=== PATIENT | female | born 1950 | race Caucasian/White ===

== ENCOUNTER 2017-07-25 17:34 | Inpatient (IN) | payer OTHER ==
[~2017-07-25] VITALS: Ht 165.1 cm; Wt 61.5 kg
--- NOTE | 2017-07-25 19:24 | ED GENERAL ADULT ---
History of Present Illness General Chief Complaint: General Adult Stated Complaint: ABNORMAL LABS Source: patient Exam Limitations: no limitations Vital Signs & Intake/Output Vital Signs & Intake/Output Vital Signs Date Time Temp Pulse Resp B/P B/P Pulse O2 O2 Flow FiO2 Mean Ox Delivery Rate 07/25 2231 99.2 94 16 142/67 96 Room Air 07/25 2229 Room Air 07/25 1755 99.1 90 18 168/98 97 Room Air Allergies Coded Allergies: codeine (Intermediate, N/V 07/25/17) Triage Note: 66F [address] DUE TO ABNORMAL LABS WITH CREATININE 5.6 AND POTASSIUM AND MAG HIGH. DENIES CP/PALP/SOB. REPORTS FEELING DRY BUT DENIES LEG SWELLING OR CONFUSION. REPORTS SHE HAS BEEN MAKING URINE TODAY. DENIES HEMATURIA OR DYSURIA. REPORTS NORMAL APPETITE, DENIES N/V Triage Nurses Notes Reviewed? yes Onset: Abrupt Duration: day(s): (1) Timing: single episode today Injury Environment: home Severity: mild, moderate No Modifying Factors: none LMP (ages 10-50): post menopausal, unknown : No HPI: 66-year-old female with past medical history of alcohol dependence presents for evaluation of abnormal labs. Patient was sent from [email or web address] where she had normal intake blood work done. Blood work revealed a elevated BUN/creatinine magnesium and potassium. Patient states that she feels slightly dehydrated but otherwise feels fine. She has no chest pain shortness of breath lower extremity edema fatigue nausea vomiting diarrhea fever or rashes. She's never had any history of kidney disease. She is not taking any medicine. She states that she had blood work done 2 weeks prior that was completely normal. (Jigar Abraham) Past History Travel History Traveled to [place] past 21 day No Medical History Any Pertinent Medical History? see below for history Neurological: NONE EENT: NONE Cardiovascular: NONE Respiratory: NONE Gastrointestinal: NONE Hepatic: NONE Renal: NONE Musculoskeletal: NONE Psychiatric: NONE Endocrine: NONE Cancer(s): NONE Surgical History Surgical History: non-contributory Psychosocial History What is your primary language Gibraltarian Tobacco Use: Current Daily Use Daily Tobacco Use Amount/Type: => 5 Cigarettes daily ETOH Use: alcoholic Illicit Drug Use: denies illicit drug use Family History Hx Contributory? No (Jigar Abraham) Review of Systems Review of Systems Constitutional: Reports: no symptoms. EENTM: Reports: no symptoms. Respiratory: Reports: no symptoms. Cardiovascular: Reports: no symptoms. GI: Reports: no symptoms. Genitourinary: Reports: no symptoms. Musculoskeletal: Reports: no symptoms. Skin: Reports: no symptoms. Neurological/Psychological: Reports: no symptoms. Hematologic/Endocrine: Reports: no symptoms. Immunologic/Allergic: Reports: no symptoms. All Other Systems: Reviewed and Negative (Jigar Abraham) Physical Exam Physical Exam General Appearance: well developed/nourished, no apparent distress, alert, awake Head: atraumatic, normal appearance Eyes: Bilateral: normal appearance, PERRL, EOMI. Ears, Nose, Throat: normal pharynx, normal ENT inspection, hearing grossly normal Neck: normal inspection, supple, full range of motion Respiratory: normal breath sounds, chest non-tender, no respiratory distress, lungs clear Cardiovascular: regular rate/rhythm, normal peripheral pulses Peripheral Pulses: 2+ radial (R), 2+ radial (L) Gastrointestinal: soft, non-tender Back: normal inspection, normal range of motion, no CVA tenderness Extremities: normal inspection, normal range of motion, no edema Neurologic/Psych: no motor/sensory deficits, awake, alert, oriented x 3, normal gait Skin: intact, normal color, cyanosis Lymphatic: no anterior cervical claudia Core Measures ACS in differential dx? No CVA/TIA Diagnosis: No Sepsis Present: No Sepsis Focused Exam Completed? No (Jigar Abraham) Progress Differential Diagnoses I considered the following diagnoses in my evaluation of the patient: [Acute kidney injury, dehydration, electrolyte abnormality, kidney stone, diabetic nephropathy, hypertensive nephropathy, nephrotic syndrome, interstitial nephritis, glomerulonephritis] Plan of Care: Orders Procedure Date/time Status Nothing by Mouth 07/26 B Active Saline Lock 07/25 2138 Active Misc Message 07/25 2138 Active ED Holding Orders 07/25 2138 Active Admit to inpatient 07/25 2138 Active Vital Signs 07/25 2138 Active Code Status 07/25 2138 Active Add-on Test (ER Only) 07/25 2048 Active Add-on Test (ER Only) 07/26 2043 Active Add-on Test (ER Only) 07/25 2021 Active TROPONIN LEVEL 07/25 194 Complete B-TYPE NATRIURETIC PEP (BNP) 07/25 194 Complete URINE DRUGS OF ABUSE 07/25 1821 Complete PHOSPHORUS 07/25 1757 Complete MAGNESIUM 07/25 1756 Complete CBC WITHOUT DIFFERENTIAL 07/25 1756 Complete BASIC METABOLIC PANEL 07/25 1756 Complete Intake & Output 07/26 1755 Active URINALYSIS 07/26 1755 Complete EKG 07/25 1753 Active Patient Data 07/25 1644 Active Current Medications Sig/Isabell Start time Last Medication Dose Stop Time Status Admin Nicotine 21 MG DAILY 07/25 2052 AC 07/25 (Nicoderm) 2251 Laboratory Tests 07/25/171943: Anion Gap 14, Estimated GFR 8 L, BUN/Creatinine Ratio 10.2, Glucose 187 H, Calcium 8.3 L, Phosphorus 5.8 H, Magnesium 2.6 H, Troponin I < 0.01, Pro-B- Natriuretic Pept 585 H, CBC w Diff NO MAN DIFF REQ, RBC 3.87 L, MCV 93.5, MCH 30.5, MCHC 32.6 L, RDW 15.3 H, MPV 6.8 L, Gran % 74.0, Lymphocytes % 13.5 L, Monocytes % 9.7 H, Eosinophils % 2.2, Basophils % 0.6, Absolute Granulocytes 7.8 H, Absolute Lymphocytes 1.4, Absolute Monocytes 1.0 H, Absolute Eosinophils 0.2, Absolute Basophils 0.1 07/25/171820: Urine Opiates Screen < 100, Methadone Screen < 40, Barbiturate Screen < 60, Ur Phencyclidine Scrn < 6.00, Amphetamines Screen < 100, U Benzodiazepines Scrn 87, Urine Cocaine Screen < 50, Urine Cannabis Screen < 5.00, Urine Color YEL, Urine Clarity CLEAR, Urine pH 6.5, Ur Specific [place] 1.010, Urine Protein TRACE H, Urine Ketones NEG, Urine Nitrite NEG, Urine Bilirubin NEG, Urine Urobilinogen 0.2, Ur Leukocyte Esterase SMALL H, Ur Microscopic SEDIMENT EXAMINED, Urine RBC 5-10 H, Urine WBC 10-15 H, Ur Epithelial Cells MANY H, Urine Bacteria MANY H , Urine Hemoglobin SMALL H, Urine Glucose NEG She seen and evaluated. She is here with abnormal labs. She denies having any previous history of kidney disease. She was [facility]. She states she had blood work done 2 weeks prior that was completely normal. She denies taking any medication. She states she feels well and has no complaints. Blood work was repeated here which confirms acute kidney injury. Her creatinine is greater than 5. Her potassium is normalized. She is able to urinate. Urinalysis here shows some red and white blood cells. And a small amount of protein. A CT scan of the abdomen and pelvis was obtained does not show any acute findings renal ultrasound ordered. Patient refused chest x-ray. She will require admission to the hospital for further evaluation and treatment of acute kidney injury and determine etiology. IV fluids ordered. Case discussed with Dr. Mai he agrees. Diagnostic Imaging: Viewed by Me: CT Scan, Ultrasound. Discussed w/RAD: CT Scan, Ultrasound. Radiology Impression: PATIENT: JOAN LOPEZ PRESENT AGE: 66 PATIENT ACCOUNT NO: [id number] : 49 LOCATION: [facility] ORDERING PHYSICIAN: Jigar ALCANTARA SERVICE DATE: 07/25/17-2022 EXAM TYPE: CAT - CT ABD & PELVIS W/O IV CONTRAS EXAMINATION: CT ABDOMEN AND PELVIS WITHOUT CONTRAST CLINICAL INFORMATION: Acute kidney injury. COMPARISON: None TECHNIQUE: Multidetector volumetric imaging was performed from the superior aspect of the liver through the pubic symphysis. Sagittal and coronal reformatted images were obtained on the technologist's workstation. DLP: 262.58 mGy-cm FINDINGS: LUNG BASES: The visualized lung bases are unremarkable. LIVER, GALLBLADDER, AND BILIARY TREE: The liver is normal in size, shape, and attenuation. No focal hepatic lesion or biliary ductal dilatation is present. There is a small coarse calcification at the posterior right lobe of liver. The gallbladder is unremarkable with no evidence of radiopaque gallstones, gallbladder wall thickening, or obvious pericholecystic inflammatory changes. PANCREAS: Unremarkable. SPLEEN: Unremarkable. ADRENAL GLANDS: Unremarkable. KIDNEYS AND URETERS: The kidneys are normal in size, shape, and attenuation. No hydronephrosis, hydroureter, or calculi seen. No perinephric stranding. 1.5 cm cortical cyst upper pole of the right kidney. BLADDER: Unremarkable. GASTROINTESTINAL TRACT: Surgical suture line at the sigmoid colon. There are surgical clips in the upper central abdomen around the gastroesophageal junction. No acute change. No bowel wall thickening or edema. No bowel obstruction. There are diverticula of left colon without diverticulitis. Moderate to large-volume of stool in the colon. The small bowel loops are normal. The appendix is not seen. There is no inflammation the mesentery. ABDOMINAL WALL: No significant hernia is appreciated. LYMPH NODES: Normal. VASCULAR: Atherosclerotic vascular wall calcifications of aorta and iliac arteries without aneurysm. PELVIC VISCERA: 1.5 cm coarse calcification the right side of the uterus consistent with calcified fibroid. No adnexal abnormality. OSSEOUS STRUCTURES: Vacuum disc phenomenon L5-S1. 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 IMPRESSION: No acute abnormality CT of the abdomen or pelvis. Normal kidneys. DICTATED BY: Uche Riley MD DATE/TIME DICTATED:07/25/172111 BONDING MACHINE SETTER:DAYA DATE/TIME TRANSCRIBED:2111 CONFIDENTIAL, DO NOT COPY WITHOUT APPROPRIATE AUTHORIZATION. < Electronically signed in Other Vendor System> SIGNED BY: Uche Riley MD 2122 Initial ED EKG: normal sinus rhythm, Left atrIAL ABN, age indeterminate anterior septal infarct (Jigar Abraham) Departure Departure Disposition: STILL A PATIENT Condition: Stable Clinical Impression Primary Impression: Acute kidney injury Referrals: Patient Has No Primary Care Dr (PCP/Family) Departure Forms: Customer Survey General Discharge Information Admission Note Spoke With: Ganesh JEAN,[facility] Documentation of Exam: Documentation of any treatments & extenuating circumstances including Concerns Regarding Discharge (functional status, medication knowledge or non-compliance, living conditions, etc.) that warrant an admission rather than observation: Patient is an acute change in her creatinine up to 5.4 which is producing normal. She has no known medical problems to cause this. [Serial labs, IV fluids, renal ultrasound, nephrology consult, meduication adjustment] (Jigar Abraham) PA/STRANDING MACHINE OPERATOR HELPER Co-Sign Statement Statement: ED Attending supervision documentation- [x] I saw and evaluated the patient. I have also reviewed all the pertinent lab results and diagnostic results. I agree with the findings and the plan of care as documented in the PA's/STRANDING MACHINE OPERATOR HELPER's documentation. 07/25/17, 20:36... pt with new onset renal failure, cr 5.6 [facility], reportedly normal on prior labs... pt merits iv fluids, imaging, renal consult. [] I have reviewed the ED Record and agree with the PA's/STRANDING MACHINE OPERATOR HELPER's documentation. [] Additions or exceptions (if any) to the PAs/STRANDING MACHINE OPERATOR HELPER's note and plan are summarized below: [] (Pau JEAN,Adalid Hutton) Critical Care Note Critical Care Note Critical Care Time: non-applicable (Gerardo ALCANTARA,Jigar)
[2017-07-25 19:59] LABS: ABSOLUTE BASOPHIL COUNT 0.1 /CUMM (0.0-0.2); ABSOLUTE EOSINOPHIL COUNT 0.2 /CUMM (0.0-0.7); ABSOLUTE GRANULOCYTE CT 7.8 /CUMM (1.4-6.5); ABSOLUTE LYMPH COUNT 1.4 /CUMM (1.2-3.4); BASOPHIL % 0.6 % (0.0-2.0); EOSINOPHIL % 2.2 % (0-5); HEMATOCRIT 36.2 % (37-47); MEAN CORPUSCULAR HGB 30.5 PG (27.0-31.0); MEAN CORPUSCULAR HGB CONC 32.6 G/DL (33.0-37.0); MEAN CORPUSCULAR VOLUME 93.5 FL (81.0-99.0); MEAN PLATELET VOLUME 6.8 FL (7.4-10.4); PLATELET COUNT 443 /CUMM (130-400); RBC DISTRIBUTION WIDTH 15.3 % (11.5-14.5); RED BLOOD CELL CT 3.87 /CUMM (4.20-5.40); WHITE BLOOD CELL COUNT 10.5 /CUMM (4.8-10.8)
--- NOTE | 2017-07-25 21:23 | CT SCAN REPORT ---
EXAMINATION: CT ABDOMEN AND PELVIS WITHOUT CONTRAST CLINICAL INFORMATION: Acute kidney injury. COMPARISON: None TECHNIQUE: Multidetector volumetric imaging was performed from the superior aspect of the liver through the pubic symphysis. Sagittal and coronal reformatted images were obtained on the technologist's workstation. DLP: 262.58 mGy-cm FINDINGS: LUNG BASES: The visualized lung bases are unremarkable. LIVER, GALLBLADDER, AND BILIARY TREE: The liver is normal in size, shape, and attenuation. No focal hepatic lesion or biliary ductal dilatation is present. There is a small coarse calcification at the posterior right lobe of liver. The gallbladder is unremarkable with no evidence of radiopaque gallstones, gallbladder wall thickening, or obvious pericholecystic inflammatory changes. PANCREAS: Unremarkable. SPLEEN: Unremarkable. ADRENAL GLANDS: Unremarkable. KIDNEYS AND URETERS: The kidneys are normal in size, shape, and attenuation. No hydronephrosis, hydroureter, or calculi seen. No perinephric stranding. 1.5 cm cortical cyst upper pole of the right kidney. BLADDER: Unremarkable. GASTROINTESTINAL TRACT: Surgical suture line at the sigmoid colon. There are surgical clips in the upper central abdomen around the gastroesophageal junction. No acute change. No bowel wall thickening or edema. No bowel obstruction. There are diverticula of left colon without diverticulitis. Moderate to large-volume of stool in the colon. The small bowel loops are normal. The appendix is not seen. There is no inflammation the mesentery. ABDOMINAL WALL: No significant hernia is appreciated. LYMPH NODES: Normal. VASCULAR: Atherosclerotic vascular wall calcifications of aorta and iliac arteries without aneurysm. PELVIC VISCERA: 1.5 cm coarse calcification the right side of the uterus consistent with calcified fibroid. No adnexal abnormality. OSSEOUS STRUCTURES: Vacuum disc phenomenon L5-S1. 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 IMPRESSION: No acute abnormality CT of the abdomen or pelvis. Normal kidneys.
--- NOTE | 2017-07-25 21:25 | History & Physical ---
Yohana Camargo MD,[facility] 07/25/172123: General Information and HPI MD Statement: I have seen and personally examined JOAN LOPEZ and documented this H&P. The patient is a 66 year old F who presented with a patient stated chief complaint of [increased Cr]. Source of Information: patient, old records Exam Limitations: poor historian, agitated at times History of Present Illness: Patient is 66-year-old female with PMH of alcohol dependence (no seizure, no ICU ), PTSD, MRSA positive (surveillance), several surgeries (cervical fusion, melanoma acute, partial gastrectomy vagotomy, partial colectomy due to diverticolosis) presented to the ED from [facility] due to abnormal lab work. 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 Patient noted that she had no complaint, she came back from [place] on Tuesday and was admitted to [facility] for alcohol abuse (no detox). Patient is from [place] and travel to [place] in August, her last detox was in [place] 4 weeks ago, and he only drank one day after that before eating admitted to [facility]. According to patient she had blood works earlier (? 10 days ago, documented blood work from July 01) which were normal. Lap ports were repeated today and patient had increased creatinine and was sent to ED. Patient denied any deacreased by mouth intake (except one week of not eating, but drinking enough before coming from [place]), change in urine color, swelling, upper respiratory tract infection, sore throat, IVDU or any other recent intervention, but reported the only new medication she was taking was gabapentin which was a started on Tuesday (she noted this was to prevent seizure in all the patient's at [facility]). There are also several medications in this EMR from [facility] but she denied taking any of them except Seroquel (that she takes since May to help with the sleep). She also noted that she had extensive cardiac workup at [place] after an episode of SVT and records are available at [facility]. She denies any chest pain, shortness of breathing, nausea or vomiting, or swelling. No change in urine color, no swelling, no rash. She had long history of smoking but quited recently. Allergies/Medications Allergies: Coded Allergies: codeine (Intermediate, N/V 07/25/17) Home Med list Quetiapine Fumarate (Seroquel) 100 MG TABLET 1 TAB PO QPM MENTAL HEALTH ( Reported) Past History Travel History Traveled to [place] past 21 day No Medical History Neurological: NONE EENT: NONE Cardiovascular: NONE Respiratory: NONE Gastrointestinal: NONE Hepatic: NONE Renal: NONE Musculoskeletal: NONE Psychiatric: NONE Endocrine: NONE Cancer(s): NONE Surgical History Surgical History: cervical fusion, melanoma acute, partial gastrectomy embolectomy, partial colectomy due to deviated colitis Past Family/Social History Psychosocial History ETOH Use: alcoholic Illicit Drug Use: denies illicit drug use Review of Systems Review of Systems Constitutional: Reports: see HPI. Exam & Diagnostic Data Last 24 Hrs of Vital Signs/I&O Vital Signs Date Time Temp Pulse Resp B/P B/P Pulse O2 O2 Flow FiO2 Mean Ox Delivery Rate 07/26 0119 98.3 83 20 126/64 96 Room Air 07/26 0000 99.3 98 20 144/71 07/26 0000 99.3 98 18 144/71 96 Room Air 07/25 2231 99.2 94 16 142/67 96 Room Air 07/25 2230 Room Air 07/25 1755 99.1 90 18 168/98 97 Room Air Intake & Output 07/26 0800 07/26 0000 07/25 1600 Intake Total 1300 Output Total 500 Balance 800 Intake, IV 1000 Intake, Oral 300 Output, Urine 500 Patient 137 lb 130 lb Weight Weight Bed scale Reported by Patient Measurement Method Physical Exam General Appearance Alert, Oriented X3, No Acute Distress, at times agitated, not cooperative Skin No Significant Lesion, no alexander appreciated Skin Temp/Moisture Exam: Warm/Dry Sepsis Skin Exam (color): Normal for Ethnicity HEENT Atraumatic, PERRLA, EOMI Cardiovascular Normal S1, Normal S2 Lungs Clear to Auscultation, Normal Air Movement Abdomen Soft, No Tenderness Neurological Normal Speech, Strength at 5/5 X4 Ext Extremities No Edema Last 24 Hrs of Labs/Andrea: Laboratory Tests 07/25/171943: Anion Gap 14, Estimated GFR 8 L, BUN/Creatinine Ratio 10.2, Glucose 187 H, Calcium 8.3 L, Phosphorus 5.8 H, Magnesium 2.6 H, Troponin I < 0.01, Pro-B- Natriuretic Pept 585 H, CBC w Diff NO MAN DIFF REQ, RBC 3.87 L, MCV 93.5, MCH 30.5, MCHC 32.6 L, RDW 15.3 H, MPV 6.8 L, Gran % 74.0, Lymphocytes % 13.5 L, Monocytes % 9.7 H, Eosinophils % 2.2, Basophils % 0.6, Absolute Granulocytes 7.8 H, Absolute Lymphocytes 1.4, Absolute Monocytes 1.0 H, Absolute Eosinophils 0.2, Absolute Basophils 0.1, Serum Alcohol < 10.0 07/25/171820: Urine Color YEL, Urine Clarity CLEAR, Urine pH 6.5, Ur Specific [place] 1.010, Urine Protein TRACE H, Urine Ketones NEG, Urine Nitrite NEG, Urine Bilirubin NEG, Urine Urobilinogen 0.2, Ur Leukocyte Esterase SMALL H, Ur Microscopic SEDIMENT EXAMINED, Urine RBC 5-10 H, Urine WBC 10-15 H, Ur Epithelial Cells MANY H, Urine Bacteria MANY H, Urine Hemoglobin SMALL H, Urine Glucose NEG 07/25/171820: Urine Opiates Screen < 100, Methadone Screen < 40, Barbiturate Screen < 60, Ur Phencyclidine Scrn < 6.00, Amphetamines Screen < 100, U Benzodiazepines Scrn 87, Urine Cocaine Screen < 50, Urine Cannabis Screen < 5.00, Ur Random Creatinine 38.8, Ur Random Sodium 37, Ur Random Potassium 38.7, Fraction Sodium Excret 3.8 H Assessment/Plan Assessment: Patient is 66-year-old female presented from [facility] due to abnormal lab work h/o alcohol dependance only new medication: Gabapentin PMH: alcohol dependence (no seizure, no ICU), PTSD, MRSA positive (surveillance) , several surgeries (cervical fusion, melanoma acute, partial gastrectomy embolectomy, partial colectomy due to deviated colitis) VS, Ph Ex at admission: Insignificant, no fever Labs at admission: WBC 10.5, Hgb 11.8, others insignificant, BEP BUN 55, creatinine 5.4, calcium 8.3, phosphorus 5.8, magnesium 2.6, proBNP 585 UA: LE small, RBC 5-10, WBC 10-15, bacteria many Imagings at admission: Abdomen CT: No acute abnormality CT of the abdomen or pelvis. Normal kidneys. US Kideny: Bosniak 2 right renal cyst. Otherwise unremarkable appearance of the kidneys. Patient was admitted to floor for management of following conditions: Non-oliguric A-K I Electrolyte derangements History of alcohol dependence -Admit patient to general medicine floor -Continue IV fluids - monitor I and O, urin output - Continue home medication except Gabapentin - Urine lites, urine smear (overlap doesn't distinguish Eosinophil in urine anymore) - CIWA, no ativan for now - Nephro consult, placed - Psych consult, placed - nictotin patch DVT ppx: ALPS, heparin FC As Ranked By This Provider Problem List: 1. Acute kidney injury Core Measures/Misc (11/28) Acute Coronary Syndrome ACS Diagnosis: No Congestive Heart Failure Congestive Heart Failure Diagnosis No Cerebrovascular Accident CVA/TIA Diagnosis: No VTE (View Protocol) VTE Risk Factors Age>40 No Mechanical VTE Prophylaxis d/t N/A MechProphylax Ordered No VTE Pharm Prophylaxis d/t NA PharmProphylax ordered Sepsis (View protocol) Sepsis Present: No Mervat JEAN,[facility] 07/26/17 0250: Resident Review Statement Resident Statement: examined this patient, discussed with internet marketing strategist, agreed with internet marketing strategist, reviewed EMR data (avail), discussed with nursing Other Findings: Patient is 66-year-old female with past medical history significant for alcohol abuse status post detoxification, diverticulosis status post hemicolectomy, peptic ulcer status post subtotal gastrectomy with vagotomy, nail melanoma, PTSD , depression, smoking 40 BPD, SVT who presented to ED from [facility] for abnormal lab work. Patient was recently admitted to [facility] Saturday 07/22 for alcohol supervision. Patient is a resident of [place] however had alcohol detoxification in [place] and reported being sober for couple of months before she had one day drinking 10 days ago and then decided to come back to [place] and being admitted to [facility] for observation. Patient reported being a nurse at [facility] in the past and was her personal decision to come and get admitted there. Upon admission patient was started on gabapentin dose 6002 days with plan to increase it to 900 today however she refused. Her only medication is Seroquel 100 every afternoon for sleep. She denied history of seizure or anxiety, denied taking Keppra. Patient had routine blood work in [place] on 07/01 with BUN/creatinine 10/0.6, GFR 100 and had follow-up routine blood work today with creatinine 5.6. Patient denied any abdominal pain, nausea , vomiting, urinary symptoms. Denied any past medical history or family history of kidney disease. She reported poor oral intake 1 week before her admission to [facility] however for the last 3 days her oral intake has been adequate per personal report. On admission vital signs temperature 99.1, pulse 90, blood pressure 168/98, respiratory rate 18 and saturation 97% Patient is alert oriented 3, anxious and agitated. Cardiac S1, S2 no murmur Chest bilateral equal air entry no added sound Abdomen soft, no tenderness, bowel sounds positive, no flank tenderness. Lower extremity no swelling or tenderness Neuro exam cranial nerves intact, sensory motor intact, gait normal. Labs significant for white blood cell 10.5, H&H 11.8/36.2, BUN creatinine 55/5.4 , sodium 137, potassium 4.7, chloride 101, bicarb 22, calcium 8.3, phosphorus 5.8, magnesium 2.6, toxicology negative, serum alcohol negative CT abdomen pelvis IMPRESSION: No acute abnormality CT of the abdomen or pelvis. Normal kidneys. Renal ultrasound IMPRESSION: Bosniak 2 right renal cyst. Otherwise unremarkable appearance of the kidneys. Problem list #Acute kidney injury #Anemia #Alcohol abuse #Depression #Insomnia Plan Admit to general medical floor Vitals every shift Repeat BEP and CBC in a.m. Obtain liver function test Obtain folic acid and vitamin B12 IV fluid normal saline 2 bags Avoid NSAIDs and nephrotoxic medication Obtain urine lytes and smear for eosinophilia Hold gabapentin (patient is refusing to take gabapentin anyway) according to up- to-date there is only postmarketing case report of acute renal failure but no well-known adverse effect Nephrology consultation in a.m. Continue Seroquel 100 at bedtime Ins/outs [facility] protocol Obtain records from [facility] in am Nicotine patch Diet regular, consider adjusting diet if patient continued to have high phosphate anemia and hypomagnesemia DVT prophylaxis Alps, heparin subcutaneous Code full Ganesh JEAN, [facility] 07/26/17 0343: Attending MD Review Statement Attending Statement Attending MD Statement: examined this patient, discuss w/resident/PA/SAFETY AND SKILL BASED PAY MANAGER, agreed w/resident/PA/SAFETY AND SKILL BASED PAY MANAGER, reviewed images, amended to note Attending Assessment/Plan: 66 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 Patient is asymptomatic. Patient has a h/o alcohol dependence and was recently at [place] [facility], returned to [place] on July 21 and got admitted to [facility] the next day. She had blood work done at [facility] which showed elevated renal functions, hence she was sent to ER for evaluation. Patient's last blood work at [place] (July 04 ) showed creatinine of 0.6 and K of 3.7. While at [facility], patient was started on escalating doses of Gabapentin but patient refused to take higher doses. She denies excessive NSAID use. One week prior to coming back to [place], patient was having nausea, vomiting and poor appetite, but she has since recovered and is keeping herself hydrated. Patient's medication list from [place]/ [facility] includes: keppra, clonidine, hydroxyzine that patient denies taking. She is yet to be started on lexapro. Vitals stable. Exam as above. Labs: BUN 55, creat 5.4, glucose 187, Ca 8.3, Phosphorus 5.8, Mag 2.6, LFTs normal. Trop neg. Albumin 3.3. UA trace proteinuria, small LE, WBC 10-15. Urine tox negative. Alcohol <10. CT abd/pelvis: no acute abnormality. Renal ultrasound: right renal cyst, otherwise normal. EKG: sinus rhythm, no acute changes. Assessment and plan: 1. Acute kidney injury pre-renal 2/2 volume depletion, ?AIN no inciting event, no fever/rash/eosinophilia. 2. Pseudohypocalcemia corrected calcium 8.9 3. Normocytic anemia 4. Smoker 5. Alcohol dependence 6. Hyperglycemia - Admit to General medicine - Strict I/O's - Check urine lytes, urine sodium excretion and CK - Renal ultrasound rule out obstruction or structural abnormality - Initiate IV fluids, and recheck renal functions in AM - Hold off nephrotoxic meds - Nephro consult in AM - Check HbA1c. - CIWA protocol, no need for ativan - Smoking cessation counseling, nicotine patch DVT ppx Hep SC. Full code.
--- NOTE | 2017-07-25 21:42 | ULTRASOUND REPORT ---
EXAMINATION: US RETROPERITONEAL COMPLETE (RENAL) CLINICAL INFORMATION: Acute kidney injury. COMPARISON: CT from today TECHNIQUE: Real-time imaging of the kidneys and bladder. FINDINGS: RIGHT KIDNEY: 12.1 x 6.3 x 6 cm (SAG x AP x TRV). The kidney is normal in size, contour, and echogenicity. Renal cortical thickness is normal. No calculi. No hydronephrosis. There is an upper pole cyst measuring 1.9 x 1.9 x 1.7 cm with a thin internal septation. No Doppler vascularity. LEFT KIDNEY: 13.8 x 6.2 x 6.1 cm (SAG x AP x TRV). The kidney is normal in size, contour, and echogenicity. Renal cortical thickness is normal. No calculi or focal parenchymal lesions. No hydronephrosis. BLADDER: Partially distended. Bilateral ureteral jets are demonstrated. Prevoid bladder volume is 117 mL. IMPRESSION: Bosniak 2 right renal cyst. Otherwise unremarkable appearance of the kidneys..
--- NOTE | 2017-07-25 23:34 | Admission Certification ---
Admission Certification Certification Statement - As attending physician, I certify that at the time of - admission, based on clinical presentation, severity of - symptoms, need for further diagnostic testing and - therapeutic interventions, and risk of adverse outcomes - without in-hospital treatment, in my clinical assessment, - this patient requires an acute hospital stay for a minimum - of two nights or longer. I have also considered psychsocial - factors such as support system, advanced age, financial - issues, cognitive issues, and failed out-patient treatments, - past re-admission history, safety of patient, and lack of - compliance as applicable. Specific rationale supporting this admission is: Acute kidney injury.
[2017-07-26] VITALS (7 sets, daily range): BP systolic 126–160; BP diastolic 58–90
[2017-07-26] MEDS ORDERED: SEROQUEL100 M1 PO (00:15)
--- NOTE | 2017-07-26 07:28 | PN- Housestaff ---
Carol Rudd 07/26/17 0728: Subjective Follow-up For: GIL Alcohol use disorder Hyperglycemia Subjective: Patient very anxious this morning to leave. She denies flank or abdominal pain, tremors, urinary or bowel symptoms. Review of Systems Constitutional: Reports: see HPI. Objective Last 24 Hrs of Vital Signs/I&O Vital Signs Date Time Temp Pulse Resp B/P B/P Pulse O2 O2 Flow FiO2 Mean Ox Delivery Rate 07/26 0557 98.3 84 20 158/58 96 Room Air 07/26 0339 98.2 80 22 128/60 95 Room Air 07/26 0119 98.3 83 20 126/64 96 Room Air 07/26 0000 99.3 98 20 144/71 07/26 0000 99.3 98 18 144/71 96 Room Air 07/25 2231 99.2 94 16 142/67 96 Room Air 07/25 2230 Room Air 07/25 1755 99.1 90 18 168/98 97 Room Air Intake & Output 07/26 1600 07/26 0800 07/26 0000 Intake Total 625 1300 Output Total 300 500 Balance 325 800 Intake, IV 625 1000 Intake, Oral 300 Output, Urine 300 500 Patient 137 lb 130 lb Weight Weight Bed scale Reported by Patient Measurement Method Physical Exam General Appearance: Alert, Oriented X3, Cooperative, Anxious Cardiovascular: Regular Rate, Normal S1, Normal S2 Lungs: Clear to Auscultation, Normal Air Movement Abdomen: Normal Bowel Sounds, Soft, No Tenderness Extremities: No Edema, No Tenderness/Swelling Current Medications: Current Medications Sig/Isabell Start time Last Medication Dose Route Stop Time Status Admin Heparin Sodium 5,000 UNIT Q8 07/26 0600 07/26 (Porcine) SC 1415 Nicotine 14 MG DAILY 07/26 0900 07/26 TOP 1632 Nicotine 0 .STK-MED ONE 07/25 2125 DC TOP Nicotine 21 MG DAILY 07/25 2053 KS 07/25 TOP 2251 Patient Medication 1 ED ONE ONE 07/26 1000 DC Teaching ED 07/26 1001 Quetiapine Fumarate 100 MG QPM 07/26 2100 AC PO Sodium Chloride 1,000 ML Q20H 07/26 1515 AC 07/26 IV 1513 Sodium Chloride 1,000 ML Q10H 07/26 0915 KS 07/26 IV 0936 Sodium Chloride 1,000 ML ONCE ONE 07/25 2330 KS 07/26 IV 07/26 0729 0210 Sodium Chloride 1,000 ML BOLUS ONE 07/25 2315 DC IV 07/26 0714 Sodium Chloride 1,000 ML BOLUS ONE 07/25 1800 DC 07/25 IV 07/25 185 194 Last 24 Hrs of Lab/Andrea Results Last 24 Hrs of Labs/Mics: Laboratory Tests 07/26/17 1200: Ur Creatinine 24 Hour Cancelled, Ur Total Protein 24 Hr Cancelled, Protein/Creat Ratio 24h Cancelled, U Protein Electrophores Cancelled, Urine Albumin (%) Cancelled, U Thqbt-[id number] Cancelled, U [place]ro[place]-3-Klylvmni Cancelled, U Beta Globulin Cancelled, U Gamma Globulin Cancelled, U Abnormal Prot Band 1 Cancelled , U Abnormal Prot Band 2 Cancelled, U Abnormal Prot Band 3 Cancelled 07/26/17 1200: Ur Random Creatinine 27.3, Ur Random Sodium 58, Ur Random Potassium 22.5, Fraction Sodium Excret 7.2 H 07/26/17 1128: Ref Lab Test Result Pending 07/26/17 0925: Anion Gap 10, Estimated GFR 9 L, BUN/Creatinine Ratio 10.6 07/25/17 1944: Anion Gap 14, Estimated GFR 8 L, BUN/Creatinine Ratio 10.2, Glucose 187 H, Hemoglobin A1c 5.2, Calcium 8.3 L, Phosphorus 5.8 H, Magnesium 2.6 H, Total Bilirubin 0.2, Direct Bilirubin 0.2, AST 14, ALT 12, Alkaline Phosphatase 54, Creatine Kinase 26 L, Troponin I < 0.01, Dba-[id number]-Vuvvtkopfxr Pept 585 H, Total Protein 6.0 L, Albumin 3.3 L, Vitamin B12 750, Folate 9.9, CBC w Diff NO MAN DIFF REQ, RBC 3.87 L, MCV 93.5, MCH 30.5, MCHC 32.6 L, RDW 15.3 H, MPV 6.8 L , Gran % 74.0, Lymphocytes % 13.5 L, Monocytes % 9.7 H, Eosinophils % 2.2, Basophils % 0.6, Absolute Granulocytes 7.8 H, Absolute Lymphocytes 1.4, Absolute Monocytes 1.0 H, Absolute Eosinophils 0.2, Absolute Basophils 0.1, Serum Alcohol < 10.0 07/25/17 1821: Urine Color YEL, Urine Clarity CLEAR, Urine pH 6.5, Ur Specific [place] 1.010, Urine Protein TRACE H, Urine Ketones NEG, Urine Nitrite NEG, Urine Bilirubin NEG, Urine Urobilinogen 0.2, Ur Leukocyte Esterase SMALL H, Ur Microscopic SEDIMENT EXAMINED, Urine RBC 5-10 H, Urine WBC 10-15 H, Ur Epithelial Cells MANY H, Urine Bacteria MANY H, Urine Hemoglobin SMALL H, Urine Glucose NEG 07/25/17 1821: Urine Opiates Screen < 100, Methadone Screen < 40, Barbiturate Screen < 60, Ur Phencyclidine Scrn < 6.00, Amphetamines Screen < 100, U Benzodiazepines Scrn 87, Urine Cocaine Screen < 50, Urine Cannabis Screen < 5.00, Ur Random Creatinine 38.8, Ur Random Sodium 37, Ur Random Potassium 38.7, Fraction Sodium Excret 3.8 H Assessment/Plan Assessment: Ms. 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 Problem list: #GIL - etiology unknown but may be 2/2 recent Gabapentin use #Alcohol use disorder #Hyperglycemia Plan: Appreciate Nephrology recommendations CIWA Monitor Cr We will obatain serum and urine electrophoresis to investigate MM, spot protein/ Cr as per Nephro NS IVF at 100 mL per hour Continue Seroquel, nicotine patch Diet: Regular DVT ppx: sc heparin Code: Full Problem List: 1. Acute kidney injury Pain Ratin Pain Location: NA Pain Goal: Remain pain free Pain Plan: NA Tomorrow's Labs & Rationales: PEREZ Murry MD,[facility] 07/26/17 1323: Attending MD Review Statement Attending Statement Attending MD Statement: examined this patient, discuss w/resident/PA/APN, agreed w/resident/PA/APN, reviewed EMR data (avail), discussed with nursing, discussed with case mgmt, reviewed images, amended to note Attending Assessment/Plan: Patient seen and examined, seems upset. Denies any previous hx of Renal issues. She came to [place] from [place] to [facility] and had been started on Gabapentin. Vital Signs Date Time Temp Pulse Resp B/P B/P Pulse O2 O2 Flow FiO2 Mean Ox Delivery Rate 07/26 0557 98.3 84 20 158/58 96 Room Air 07/26 0339 98.2 80 22 128/60 95 Room Air 07/26 0119 98.3 83 20 126/64 96 Room Air 07/26 0000 99.3 98 20 144/71 07/26 0000 99.3 98 18 144/71 96 Room Air 07/25 2231 99.2 94 16 142/67 96 Room Air 07/25 2230 Room Air 07/25 1755 99.1 90 18 168/98 97 Room Air on exam; aox3, nad. cv; s1, s2, rrr resp; clear abd; soft, nt, bs+ ext; no edema Laboratory Tests 07/26 07/26 07/26 07/26 1200 1200 1128 0925 Chemistry Sodium (137 - 145 mmol/L) 138 Potassium (3.5 - 5.1 mmol/L) 4.6 Chloride (98 - 107 mmol/L) 106 Carbon Dioxide (22 - 30 mmol/L) 23 Anion Gap (5 - 16) 10 BUN (7 - 17 mg/dL) 50 H Creatinine (0.5 - 1.0 mg/dL) 4.7 H Estimated GFR (>60 ml/min) 9 L BUN/Creatinine Ratio (7 - 25 %) 10.6 Miscellaneous Ref Lab Test Result Pending Urines Ur Random Creatinine (mg/dL) 27.3 Ur Random Sodium (30 - 90 mmol/L) 58 Ur Random Potassium (mmol/L) 22.5 Ur Creatinine 24 Hour Cancelled Ur Total Protein 24 Hr Cancelled Protein/Creat Ratio 24h Cancelled Fraction Sodium Excret (<1% %) 7.2 H U Protein Electrophores Cancelled Urine Albumin (%) Cancelled U Soccw-4-Loxwvqok Cancelled U Aifuj-6-Doaktlya Cancelled U Beta Globulin Cancelled U Gamma Globulin Cancelled U Abnormal Prot Band 1 Cancelled U Abnormal Prot Band 2 Cancelled U Abnormal Prot Band 3 Cancelled 07/25 07/25 194 1821 Chemistry Sodium (137 - 145 mmol/L) 137 Potassium (3.5 - 5.1 mmol/L) 4.7 Chloride (98 - 107 mmol/L) 101 Carbon Dioxide (22 - 30 mmol/L) 22 Anion Gap (5 - 16) 14 BUN (7 - 17 mg/dL) 55 H Creatinine (0.5 - 1.0 mg/dL) 5.4 *H Estimated GFR (>60 ml/min) 8 L BUN/Creatinine Ratio (7 - 25 %) 10.2 Glucose (65 - 99 mg/dL) 187 H Hemoglobin A1c (4.2 - 5.8 %) 5.2 Calcium (8.4 - 10.2 mg/dL) 8.3 L Phosphorus (2.5 - 4.5 mg/dL) 5.8 H Magnesium (1.6 - 2.3 mg/dL) 2.6 H Total Bilirubin (0.2 - 1.3 mg/dL) 0.2 Direct Bilirubin (< 0.4 mg/dL) 0.2 AST (14 - 36 U/L) 14 ALT (9 - 52 U/L) 12 Alkaline Phosphatase (<127 U/L) 54 Creatine Kinase (30 - 135 U/L) 26 L Troponin I (< 0.11 ng/ml) < 0.01 Tlb-H-Utiqlkobseg Pept (<125 pg/mL) 585 H Total Protein (6.3 - 8.2 g/dL) 6.0 L Albumin (3.5 - 5.0 g/dL) 3.3 L Vitamin B12 (239 - 931 pg/mL) 750 Folate (2.76 - 20.0 ng/mL) 9.9 Hematology CBC w Diff NO MAN DIFF REQ WBC (4.8 - 10.8 /CUMM) 10.5 RBC (4.20 - 5.40 /CUMM) 3.87 L Hgb (12.0 - 16.0 G/DL) 11.8 L Hct (37 - 47 %) 36.2 L MCV (81.0 - 99.0 FL) 93.5 MCH (27.0 - 31.0 PG) 30.5 MCHC (33.0 - 37.0 G/DL) 32.6 L RDW (11.5 - 14.5 %) 15.3 H Plt Count (130 - 400 /CUMM) 443 H MPV (7.4 - 10.4 FL) 6.8 L Gran % (42.2 - 75.2 %) 74.0 Lymphocytes % (20.5 - 51.1 %) 13.5 L Monocytes % (1.7 - 9.3 %) 9.7 H Eosinophils % (0 - 5 %) 2.2 Basophils % (0.0 - 2.0 %) 0.6 Absolute Granulocytes (1.4 - 6.5 /CUMM) 7.8 H Absolute Lymphocytes (1.2 - 3.4 /CUMM) 1.4 Absolute Monocytes (0.10 - 0.60 /CUMM) 1.0 H Absolute Eosinophils (0.0 - 0.7 /CUMM) 0.2 Absolute Basophils (0.0 - 0.2 /CUMM) 0.1 Toxicology Serum Alcohol (<10 MG/DL) < 10.0 Urines Urine Color (YEL,AMB,STR) YEL Urine Clarity (CLEAR) CLEAR Urine pH (5.0 - 8.0) 6.5 Ur Specific [place] (1.001 - 1.035) 1.010 Urine Protein (NEG,<30 MG/DL) TRACE H Urine Ketones (NEG) NEG Urine Nitrite (NEG) NEG Urine Bilirubin (NEG) NEG Urine Urobilinogen (0.1 - 1.0 EU/dl) 0.2 Ur Leukocyte Esterase (NEG) SMALL H Ur Microscopic SEDIMENT EXAMINED Urine RBC (0 - 5 /HPF) 5-10 H Urine WBC (0 - 2 /HPF) 10-15 H Ur Epithelial Cells (NONE,FEW) MANY H Urine Bacteria (NEG/NONE) MANY H Urine Hemoglobin (NEG) SMALL H Urine Glucose (N MG/DL) NEG 07/25 1821 Toxicology Urine Opiates Screen (>2000 NG/ML) < 100 Methadone Screen (>300 NG/ML) < 40 Barbiturate Screen (>200 NG/ML) < 60 Ur Phencyclidine Scrn (>25 NG/ML) < 6.00 Amphetamines Screen (>1000 NG/ML) < 100 U Benzodiazepines Scrn (>200 NG/ML) 87 Urine Cocaine Screen (>300 NG/ML) < 50 Urine Cannabis Screen (>50 NG/ML) < 5.00 Urines Ur Random Creatinine (mg/dL) 38.8 Ur Random Sodium (30 - 90 mmol/L) 37 Ur Random Potassium (mmol/L) 38.7 Fraction Sodium Excret (<1% %) 3.8 H A/P: 66 y/o F with pmh sig for alcohol dependence (no seizure, no ICU), PTSD, MRSA positive (surveillance), several surgeries (cervical fusion, melanoma acute , partial gastrectomy vagotomy, partial colectomy, admitted with abnormal labs which included acute renal failure likely related to ATN. D/W Dr. Gastelum from nephro. Will continue IVFs. Renal US neg for any obstruction. Will continue to monitor Cr. DVt px; hep sq.
--- NOTE | 2017-07-26 11:39 | Cons- Nephrology ---
General Information and HPI Consulting Request Date of Consult: 07/26/17 Requested By: Edel Murry MD Reason for Consult: Acute kidney injury Source of Information: patient Exam Limitations: no limitations History of Present Illness: This 66-year-old retired with a remote history of melanoma in 1980, also a history of peptic ulcer disease requiring gastrectomy, also history of diverticular disease requiring a partial colectomy, has a history of ethanol abuse and was admitted recently to [facility]. She reports receiving gabapentin which she was reticent to take. She actually received an extra dose. Listed on her medications, is also ibuprofen. She reports only receiving 1 dose of that. She was found on blood work to have a serum creatinine of 5.6. She denies any previous history of renal disease. There is no history of kidney stones or kidney infections. No history of hematuria or proteinuria. She has remote history of cystitis. She does report nocturia once or twice a night but this goes back for years. She does not have a history of hypertension except for the occasional episode related to perhaps anxiety or perhaps related to her ethanol use or treatment for her ethanol use. Reviewing the old record, they serum creatinine from 07/01/2017 which was 0.6. She also is taking Seroquel. She was also receiving Keppra. Her serum creatinine upon presentation here was 5.4 mg/dL. She has no history of diabetes or hypertension. There is no family history of end-stage renal disease. She does have a nephew with hypertension. Of note, her father succumbed to an astrocytoma. Her mother had a history of COPD and also Alzheimer's. She later succumbed to a stroke. There is no family history of renal disease or proteinuria. Her fractional excretion of sodium was 3.8%. There is only trace proteinuria on urinalysis. Allergies/Medications Allergies: Coded Allergies: codeine (Intermediate, N/V 07/25/17) Home Med List: Quetiapine Fumarate (Seroquel) 100 MG TABLET 1 TAB PO QPM MENTAL HEALTH ( Reported) Current Medications: Current Medications Sig/Isabell Start time Last Medication Dose Route Stop Time Status Admin Heparin Sodium 5,000 UNIT Q8 07/26 0600 AC 07/26 (Porcine) SC 0611 Nicotine 14 MG DAILY 07/26 0900 AC TOP Nicotine 0 .STK-MED ONE 07/25 2124 DC TOP Nicotine 21 MG DAILY 07/25 2053 RI 07/25 TOP 2251 Patient Medication 1 ED ONE ONE 07/26 1000 DC Teaching ED 07/26 1001 Quetiapine Fumarate 100 MG QPM 07/26 2100 AC PO Sodium Chloride 1,000 ML Q10H 07/26 0915 AC 07/26 IV 0936 Sodium Chloride 1,000 ML ONCE ONE 07/25 2330 DC 07/26 IV 07/26 0729 0210 Sodium Chloride 1,000 ML BOLUS ONE 07/25 2315 DC IV 07/26 0714 Sodium Chloride 1,000 ML BOLUS ONE 07/25 1800 DC 07/25 IV 07/25 1859 1948 Review of Systems Review of Systems Constitutional: Reports: no symptoms. Denies: chills, diaphoresis, fever, malaise, weakness, unexplained weight loss. EENTM: Denies: blurred vision, double vision, visual changes, eye pain, hearing changes , nasal congestion, epistaxis, throat pain. Cardiovascular: Denies: chest pain, edema, orthopena, palpitations, peripheral edema. Respiratory: Denies: cough, hemoptysis, orthopnea, short of breath, stridor, wheezing. GI: Denies: bloating, constipation, diarrhea, distention, melena, nausea, bloody stool, changes in stool, vomiting. Genitourinary: Reports: nocturia. Denies: discharge, dysuria, frequency, hematuria, hesitation , pain, urgency. Musculoskeletal: Denies: back pain, muscle pain, muscle stiffness, neck pain. Skin: Denies: jaundice, rash. Neurological/Psychological: Denies: cognitive dysfunction, headache, numbness, tingling, tremors, tonic- clonic seizures. Hematologic/Endocrine: Denies: bruising, bleeding, polyuria. Past History Travel History Traveled to [place] past 21 day No Medical History Blood Transfusion Hx: No Neurological: NONE EENT: NONE Cardiovascular: NONE Respiratory: NONE Gastrointestinal: diverticulitis, peptic ulcer disease Hepatic: NONE Renal: NONE Musculoskeletal: radiculopathy Psychiatric: NONE Endocrine: NONE Blood Disorders: NONE Cancer(s): melanoma SENIOR UI UX DESIGNER/Reproductive: NONE Surgical History Surgical History: appendectomy, colon resection, cervical fusion, melanoma acute , partial gastrectomy embolectomy, partial colectomy due to deviated colitis, subtotal gastrectomy, vagotomy with pyloroplasty Family History Relations & Conditions If Any: FATHER, . FATHER, . MOTHER, . Relation not specified for: FH: Alzheimer's disease FH: COPD (chronic obstructive pulmonary disease) Malignant neoplasm of brain Psychosocial History Where Do You Live? Other Services at Home: None Smoking Status: Current Everyday Smoker ETOH Use: alcoholic Illicit Drug Use: denies illicit drug use Exam & Diagnostic Data Vital Signs and I&O Vital Signs Date Time Temp Pulse Resp B/P B/P Pulse O2 O2 Flow FiO2 Mean Ox Delivery Rate 07/26 0557 98.3 84 20 158/58 96 Room Air 07/26 0339 98.2 80 22 128/60 95 Room Air 07/26 0119 98.3 83 20 126/64 96 Room Air 07/26 0000 99.3 98 20 144/71 07/26 0000 99.3 98 18 144/71 96 Room Air 07/25 2231 99.2 94 16 142/67 96 Room Air 07/25 2230 Room Air 07/25 1755 99.1 90 18 168/98 97 Room Air Intake & Output 07/26 1600 07/26 0400 07/25 1600 07/25 0400 07/24 1600 07/24 0400 Intake Total 625 1300 Output Total 300 500 Balance 325 800 Intake, IV 625 1000 Intake, Oral 300 Output, Urine 300 500 Patient 137 lb 137 lb Weight Weight Bed scale Measurement Method Physical Exam General Appearance: well developed/nourished, no apparent distress, alert, awake , anxious, comfortable, thin Head: atraumatic, normal appearance Eyes: Bilateral: PERRL, EOMI, pale conjunctivae. Ears, Nose, Throat: normal pharynx, normal ENT inspection, hearing grossly normal Neck: normal inspection, supple, full range of motion Respiratory: normal breath sounds, chest non-tender, no respiratory distress, lungs clear Cardiovascular: regular rate/rhythm, norml femoral pulses equa Peripheral Pulses: 3+ femoral (R), 3+ femoral (L), 3+ popliteal (R), 3+ popliteal (L), 3+ tibialis posterior (R), 3+ tibialis posterior (L), 3+ dorsalis pedis (R), 3+ dorsalis pedis (L) Gastrointestinal: normal bowel sounds, soft, non-tender, no organomegaly Rectal: deferred Back: normal inspection, no vertebral tenderness Extremities: normal inspection, normal capillary refill, normal range of motion, no edema Neurologic/Psych: no motor/sensory deficits, awake, alert, oriented x 3, normal mood/affect, 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 Cranial Nerves: normal hearing, normal speech, PERRL Lymphatic: no anterior cervical claudia Results Pertinent Lab Results: Laboratory Tests 07/26 07/25 5650 2127 Chemistry Sodium (137 - 145 mmol/L) 138 137 Potassium (3.5 - 5.1 mmol/L) 4.6 4.7 Chloride (98 - 107 mmol/L) 106 101 Carbon Dioxide (22 - 30 mmol/L) 23 22 Anion Gap (5 - 16) 10 14 BUN (7 - 17 mg/dL) 50 H 55 H Creatinine (0.5 - 1.0 mg/dL) 4.7 H 5.4 *H Estimated GFR (>60 ml/min) 9 L 8 L BUN/Creatinine Ratio (7 - 25 %) 10.6 10.2 Glucose (65 - 99 mg/dL) 187 H Hemoglobin A1c (4.2 - 5.8 %) 5.2 Calcium (8.4 - 10.2 mg/dL) 8.3 L Phosphorus (2.5 - 4.5 mg/dL) 5.8 H Magnesium (1.6 - 2.3 mg/dL) 2.6 H Total Bilirubin (0.2 - 1.3 mg/dL) 0.2 Direct Bilirubin (< 0.4 mg/dL) 0.2 AST (14 - 36 U/L) 14 ALT (9 - 52 U/L) 12 Alkaline Phosphatase (<127 U/L) 54 Creatine Kinase (30 - 135 U/L) 26 L Troponin I (< 0.11 ng/ml) < 0.01 [id number] Pept (<125 pg/mL) 585 H Total Protein (6.3 - 8.2 g/dL) 6.0 L Albumin (3.5 - 5.0 g/dL) 3.3 L Vitamin B12 (239 - 931 pg/mL) 750 Folate (2.76 - 20.0 ng/mL) 9.9 Hematology CBC w Diff NO MAN DIFF REQ WBC (4.8 - 10.8 /CUMM) 10.5 RBC (4.20 - 5.40 /CUMM) 3.87 L Hgb (12.0 - 16.0 G/DL) 11.8 L Hct (37 - 47 %) 36.2 L MCV (81.0 - 99.0 FL) 93.5 MCH (27.0 - 31.0 PG) 30.5 MCHC (33.0 - 37.0 G/DL) 32.6 L RDW (11.5 - 14.5 %) 15.3 H Plt Count (130 - 400 /CUMM) 443 H MPV (7.4 - 10.4 FL) 6.8 L Gran % (42.2 - 75.2 %) 74.0 Lymphocytes % (20.5 - 51.1 %) 13.5 L Monocytes % (1.7 - 9.3 %) 9.7 H Eosinophils % (0 - 5 %) 2.2 Basophils % (0.0 - 2.0 %) 0.6 Absolute Granulocytes (1.4 - 6.5 /CUMM) 7.8 H Absolute Lymphocytes (1.2 - 3.4 /CUMM) 1.4 Absolute Monocytes (0.10 - 0.60 /CUMM) 1.0 H Absolute Eosinophils (0.0 - 0.7 /CUMM) 0.2 Absolute Basophils (0.0 - 0.2 /CUMM) 0.1 Toxicology Serum Alcohol (<10 MG/DL) < 10.0 07/25 07/25 1821 1821 Toxicology Urine Opiates Screen (>2000 NG/ML) < 100 Methadone Screen (>300 NG/ML) < 40 Barbiturate Screen (>200 NG/ML) < 60 Ur Phencyclidine Scrn (>25 NG/ML) < 6.00 Amphetamines Screen (>1000 NG/ML) < 100 U Benzodiazepines Scrn (>200 NG/ML) 87 Urine Cocaine Screen (>300 NG/ML) < 50 Urine Cannabis Screen (>50 NG/ML) < 5.00 Urines Urine Color (YEL,AMB,STR) YEL Urine Clarity (CLEAR) CLEAR Urine pH (5.0 - 8.0) 6.5 Ur Specific Adrian (1.001 - 1.035) 1.010 Urine Protein (NEG,<30 MG/DL) TRACE H Urine Ketones (NEG) NEG Urine Nitrite (NEG) NEG Urine Bilirubin (NEG) NEG Urine Urobilinogen (0.1 - 1.0 EU/dl) 0.2 Ur Leukocyte Esterase (NEG) SMALL H Ur Microscopic SEDIMENT EXAMINED Urine RBC (0 - 5 /HPF) 5-10 H Urine WBC (0 - 2 /HPF) 10-15 H Ur Epithelial Cells (NONE,FEW) MANY H Urine Bacteria (NEG/NONE) MANY H Urine Hemoglobin (NEG) SMALL H Ur Random Creatinine (mg/dL) 38.8 Ur Random Sodium (30 - 90 mmol/L) 37 Ur Random Potassium (mmol/L) 38.7 Fraction Sodium Excret (<1% %) 3.8 H Urine Glucose (N MG/DL) NEG Imaging/Other Studies: PATIENT: JOAN LOPEZ PRESENT AGE: 66 PATIENT ACCOUNT NO: [id number] : 49 LOCATION: [facility] ORDERING PHYSICIAN: Jigar ALCANTARA SERVICE DATE: 07/25/17 EXAM TYPE: US - US-RENAL/KIDNEY EXAMINATION: US RETROPERITONEAL COMPLETE (RENAL) CLINICAL INFORMATION: Acute kidney injury. COMPARISON: CT from today TECHNIQUE: Real-time imaging of the kidneys and bladder. FINDINGS: RIGHT KIDNEY: 12.1 x 6.3 x 6 cm (SAG x AP x TRV). The kidney is normal in size, contour, and echogenicity. Renal cortical thickness is normal. No calculi. No hydronephrosis. There is an upper pole cyst measuring 1.9 x 1.9 x 1.7 cm with a thin internal septation. No Doppler vascularity. LEFT KIDNEY: 13.8 x 6.2 x 6.1 cm (SAG x AP x TRV). The kidney is normal in size, contour, and echogenicity. Renal cortical thickness is normal. No calculi or focal parenchymal lesions. No hydronephrosis. BLADDER: Partially distended. Bilateral ureteral jets are demonstrated. Prevoid bladder volume is 117 mL. IMPRESSION: Bosniak 2 right renal cyst. Otherwise unremarkable appearance of the kidneys.. DICTATED BY: Mariusz Barajas MD DATE/TIME DICTATED:07/25/172136 ORE TRIMMER:DAYA DATE/TIME TRANSCRIBED:07/25/172136 CONFIDENTIAL, DO NOT COPY WITHOUT APPROPRIATE AUTHORIZATION. <Electronically signed in Other Vendor System> SIGNED BY: Mariusz Barajas MD 07/25 PATIENT: JOAN LOPEZ PRESENT AGE: 66 PATIENT ACCOUNT NO: [id number] : 49 LOCATION: [facility] ORDERING PHYSICIAN: Jigar ALCANTARA SERVICE DATE: 07/25/17 EXAM TYPE: CAT - CT ABD & PELVIS W/O IV CONTRAS EXAMINATION: CT ABDOMEN AND PELVIS WITHOUT CONTRAST CLINICAL INFORMATION: Acute kidney injury. COMPARISON: None TECHNIQUE: Multidetector volumetric imaging was performed from the superior aspect of the liver through the pubic symphysis. Sagittal and coronal reformatted images were obtained on the technologist's workstation. DLP: 262.58 mGy-cm FINDINGS: LUNG BASES: The visualized lung bases are unremarkable. LIVER, GALLBLADDER, AND BILIARY TREE: The liver is normal in size, shape, and attenuation. No focal hepatic lesion or biliary ductal dilatation is present. There is a small coarse calcification at the posterior right lobe of liver. The gallbladder is unremarkable with no evidence of radiopaque gallstones, gallbladder wall thickening, or obvious pericholecystic inflammatory changes. PANCREAS: Unremarkable. SPLEEN: Unremarkable. ADRENAL GLANDS: Unremarkable. KIDNEYS AND URETERS: The kidneys are normal in size, shape, and attenuation. No hydronephrosis, hydroureter, or calculi seen. No perinephric stranding. 1.5 cm cortical cyst upper pole of the right kidney. BLADDER: Unremarkable. GASTROINTESTINAL TRACT: Surgical suture line at the sigmoid colon. There are surgical clips in the upper central abdomen around the gastroesophageal junction. No acute change. No bowel wall thickening or edema. No bowel obstruction. There are diverticula of left colon without diverticulitis. Moderate to large-volume of stool in the colon. The small bowel loops are normal. The appendix is not seen. There is no inflammation the mesentery. ABDOMINAL WALL: No significant hernia is appreciated. LYMPH NODES: Normal. VASCULAR: Atherosclerotic vascular wall calcifications of aorta and iliac arteries without aneurysm. PELVIC VISCERA: 1.5 cm coarse calcification the right side of the uterus consistent with calcified fibroid. No adnexal abnormality. OSSEOUS STRUCTURES: Vacuum disc phenomenon L5-S1. 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 IMPRESSION: No acute abnormality CT of the abdomen or pelvis. Normal kidneys. DICTATED BY: Uche Riley MD DATE/TIME DICTATED:07/25/172111 ORE TRIMMER:DAYA DATE/TIME TRANSCRIBED:07/25/172111 CONFIDENTIAL, DO NOT COPY WITHOUT APPROPRIATE AUTHORIZATION. <Electronically signed in Other Vendor System> SIGNED BY: Uche Riley MD 07/25/172122 Assessment/Plan Assessment/Recommendations Assessment: 1. Acute kidney injury. At this point I do not have any recent believe that she had abnormal renal function. 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 She reports arriving at [facility] and receiving an extra dose of gabapentin. She has taken maybe one ibuprofen. Are as she is aware, her serum creatinine has been normal. In fact, in the paper chart, her serum creatinine was 0.6 on 07/01/2017. This was from [facility]. Her renal imaging is unremarkable. She does not have significant proteinuria. Her urinary indices are consistent with acute tubular necrosis. Her creatinine is already decreased with the administration of IV fluids. She reports only 1 dose of ibuprofen. 2. History of alcohol abuse. 3. Remote history of melanoma requiring wide excision in 1980 4. Remote history of peptic ulcer disease requiring a partial gastrectomy, pyloroplasty and vagotomy. Recommendations: 1. Would continue strict intakes and outputs and daily weights 2. Given the fact that she is recovering, it would not seem appropriate to work on the serologic workup. 3. Would however obtain a urine protein lunch phoresis and the serum immunoelectrophoresis to exclude the possibility of paraproteinemia. That being said, her total protein is low, her calcium is where it should be and her albumin is low. This would all point away from acute kidney injury mediated by casts. 4. If her serum creatinine continues to improve tomorrow, then she could potentially be discharged.
[2017-07-27 06:22] VITALS: BP 158/80
--- NOTE | 2017-07-27 07:23 | PN- Housestaff ---
See Addendum Subjective Follow-up For: GIL Subjective: Patient anxious to go back to [facility] and have her labs followed there. Review of Systems Constitutional: Reports: see HPI. Objective Last 24 Hrs of Vital Signs/I&O Vital Signs Date Time Temp Pulse Resp B/P B/P Pulse O2 O2 Flow FiO2 Mean Ox Delivery Rate 07/27 0622 98.2 84 18 158/80 95 Room Air 07/26 2030 97.4 82 18 156/70 97 Room Air 07/26 1800 160/80 07/26 1444 98.4 75 18 160/90 96 Room Air Intake & Output 07/27 1600 07/27 0800 07/27 0000 Intake Total 1600 1360 Output Total 1450 1250 Balance 150 110 Intake, IV 400 400 Intake, Oral 1200 960 Number 0 Bowel Movements Output, Urine 1450 1250 Patient 136 lb Weight Physical Exam General Appearance: Alert, Oriented X3, Anxious and agitated Cardiovascular: Regular Rate, Normal S1, Normal S2 Lungs: Clear to Auscultation, Normal Air Movement Abdomen: Normal Bowel Sounds, Soft, No Tenderness Extremities: No Edema Current Medications: Current Medications Sig/Isaebll Start time Last Medication Dose Route Stop Time Status Admin Heparin Sodium 5,000 UNIT Q8 07/26 0600 07/27 (Porcine) SC 0546 Nicotine 14 MG 1600 07/27 1600 TOP Nicotine 14 MG DAILY 07/26 0900 WV 07/26 TOP 1632 Patient Medication 1 ED ONE ONE 07/27 1115 W[place] Teaching ED 07/27 1116 Quetiapine Fumarate 100 MG QPM 07/26 2100 AC 07/26 PO 2210 Sodium Chloride 1,000 ML Q20H 07/26 1515 AC 07/26 IV 2348 Sodium Chloride 1,000 ML Q10H 07/26 0915 DC 07/26 IV 0936 Last 24 Hrs of Lab/Andrea Results Last 24 Hrs of Labs/Mics: Laboratory Tests 07/27/17 0626: Anion Gap 10, Estimated GFR 11 L, BUN/Creatinine Ratio 11.5, CBC w Diff NO MAN DIFF REQ, RBC 3.73 L, MCV 93.7, MCH 30.9, MCHC 33.0, RDW 15.6 H, MPV 7.1 L, Gran % 70.8, Lymphocytes % 16.4 L, Monocytes % 9.7 H, Eosinophils % 2.4, Basophils % 0.7, Absolute Granulocytes 7.0 H, Absolute Lymphocytes 1.6, Absolute Monocytes 1.0 H, Absolute Eosinophils 0.2, Absolute Basophils 0.1 07/27/17 0600: Prot Electrophoresis Pending, Total Protein (PEP) Pending, Albumin % (PEP) Pending, [id number]-[id number] Pending, Hwyum-9-Khxclpygf Pending, Uvwj-2-Weqnuzgu Pending, Saoe-0-Oijlhzwa Pending, Gamma Globulins Pending, Abnorm Protein Band 1 Pending, Abnorm Protein Band 2 Pending, Abnorm Protein Band 3 Pending 07/26/17 1200: Ur Creatinine 24 Hour Cancelled, Ur Total Protein 24 Hr Cancelled, Protein/Creat Ratio 24h Cancelled, U Protein Electrophores Cancelled, Urine Albumin (%) Cancelled, U Ppzwp-[id number] Cancelled, U Kymbe-7-Stcfgybq Cancelled, U Beta Globulin Cancelled, U Gamma Globulin Cancelled, U Abnormal Prot Band 1 Cancelled , U Abnormal Prot Band 2 Cancelled, U Abnormal Prot Band 3 Cancelled 07/26/17 1200: Ur Random Creatinine 27.3, Ur Random Sodium 58, Ur Random Potassium 22.5, Fraction Sodium Excret 7.2 H Assessment/Plan Assessment: Ms. Mendoza is a 66-year-old female with PMH of alcohol dependence, PTSD, MRSA positive (surveillance), several surgeries (cervical fusion, melanoma acute, partial gastrectomy vagotomy, partial colectomy due to diverticolosis) presented to the ED from [facility] due to abnormal lab work. Problem list: #GIL - etiology unknown but may be 2/2 recent Gabapentin use #Alcohol use disorder #Hyperglycemia Plan: Appreciate Nephrology recommendations CIWA Monitor Cr We will obtain serum and urine electrophoresis to investigate MM, spot protein/ Cr as per Nephro. If urine electrophoresis shows increased Protein/Cr ratio then we would have continue to investigate for paraproteinuria etiologies NS IVF at 100 mL per hour Continue Seroquel, nicotine patch Diet: Regular DVT ppx: sc heparin Code: Full Dispo: [facility]. Dr. Ronquillo was contacted to inquire if labs can be followed at [facility] and he confirmed it can Problem List: 1. Acute kidney injury Pain Ratin Pain Location: NA Pain Goal: Remain pain free Pain Plan: NA Tomorrow's Labs & Rationales: BEP
--- NOTE | 2017-07-27 08:24 | Patient Discharge Instructions ---
Discharge Instructions General Discharge Information You were seen/treated for: Acute kidney injury You had these procedures: none Watch for these problems: Difficulty with urination, decreased amount of urination, abdominal or back pain , nausea, vomiting, fever, chills or chest pain Special Instructions: Have your Chem lab checked on Tuesday and Tuesday for renal function Follow up with the mental health coordinator-Dr. Gastelum within 1 week of discharge Keep yourself hydrated. Encourage water intake. Avoid NSAIDs, Gabapentin and other associated nephrotoxins Diet Continue normal diet: Yes Activity Full Activity/No Limits: Yes Acute Coronary Syndrome Inclusion Criteria At DC or during hospital stay patient has or had the following: ACS DIAGNOSIS No Discharge Core Measures Meds if any: Prescribed or Continued at Discharge Meds if any: NOT Prescribed or Continued at Discharge Congestive Heart Failure Inclusion Criteria At DC or during hospital stay patient has or had the following: CHF DIAGNOSIS No Discharge Core Measures Meds if any: Prescribed or Continued at Discharge Meds if any: NOT Prescribed or Continued at Discharge Cerebrovascular accident Inclusion Criteria At DC or during hospital stay patient has or had the following: CVA/TIA Diagnosis No Discharge Core Measures Meds if any: Prescribed or Continued at Discharge Meds if any: NOT Prescribed or Continued at Discharge Venous thromboembolism Inclusion Criteria VTE Diagnosis No VTE Type NONE VTE Confirmed by (Test) NONE Discharge Core Measures - Per Current guidelines, there needs to be overlap - treatment for the first 5 days of Warfarin therapy. - If discharged on Warfarin prior to 5 days of - overlap therapy, the patient will need to be - assessed for post discharge needs including - *Post discharge parental anticoagulation - *Warfarin and/or parental anticoagulation education - *Follow up date to check INR post discharge At least 5 days overlap therapy as Inpatient No Meds if any: Prescribed or Continued at Discharge Note: Overlap Therapy is Warfarin and Anticoagulant Meds if any: NOT Prescribed or Continued at Discharge
--- NOTE | 2017-07-27 08:27 | Discharge Summary ---
Visit Information Visit Dates Admission Date: 07/25/17 Discharge Date: 07/27/17 Hospital Course Course Attending Physician: Jeanmarie JEAN,Edel Primary Care Physician: Patient Has No Primary Care Dr Hospital Course: Ms. Mendoza is a 66-year-old female with PMH of alcohol dependence, PTSD, MRSA positive (surveillance), several surgeries (cervical fusion, melanoma acute, partial gastrectomy vagotomy, partial colectomy due to diverticolosis) presented to the ED from [facility] due to abnormal lab work. She was admitted to the general medical floor for further evaluation and management. #GIL Nephrology-Dr. Gastelum was consulted. Her labs were significant for a creatinine of 5.4 that eventually trended down to 4.0, eGFR 8, BUN 55. She was given aggressive IV fluids. It was unknown the etiology of her acute kidney injury but suspected to be due to ATN. Imaging revealed benign renal cysts. A serum and urine electrophoresis were done and sent out. Patient was advised to follow-up with nephrology for the results with possible further workup. On the day of discharge Cr was 4. Although ideally speaking we should have seen more drop in Cr. pt wanted to go to [facility]. We also confrmed this with Dr. gastelum who agreed with her discharge with close follow up. [facility] rehabilitation was contacted and it was confirmed with Dr. Ronquillo that they would be able to monitor her renal function while receiving treatment for her alcohol dependence #Electrolyte derangement - most likely due to GIL and dehydration Upon admission her glucose 187 but her hemoglobin A1c was 5.2, BNP 585, magnesium 2.6, phosphorus 5.8 #Chronic medical conditions She was resumed on her Quetiapine and given a nicotine patch Allergies: Coded Allergies: codeine (Intermediate, N/V 07/25/17) Pertinent Lab Results: 07/25/17-2022 EXAM TYPE: CAT - CT ABD & PELVIS W/O IV CONTRAS IMPRESSION: No acute abnormality CT of the abdomen or pelvis. Normal kidneys. 07/25/17 EXAM TYPE: US - US-RENAL/KIDNEY IMPRESSION: Bosniak 2 right renal cyst. Otherwise unremarkable appearance of the kidneys. Disposition Summary Disposition Principal Diagnosis: Acute kidney injury Additional Diagnosis: Electrolyte derangement Discharge Disposition: home or self care Discharge Instructions General Discharge Information Code Status: Full Code Patient's Diet: Regular Patient's Activity: Full Follow-Up Instructions/Appts: Have your Chem lab checked on Tuesday and Tuesday for renal function Follow up with the molding press operator-Dr. Gastelum within 1 week of discharge Keep yourself hydrated. Encourage water intake. Avoid NSAIDs, Gabapentin and other associated nephrotoxins Medications at Discharge Discharge Medications: Continue taking these medications: Quetiapine Fumarate (Seroquel) 100 MG TABLET 1 Tablet ORAL Every night Comments: Last Taken: 07/26/17 Time: 10:20 PM Copies To: Nirav JEAN,Rufus Carvajal
[2017-07-27 08:57] LABS: ABSOLUTE BASOPHIL COUNT 0.1 /CUMM (0.0-0.2); ABSOLUTE EOSINOPHIL COUNT 0.2 /CUMM (0.0-0.7); ABSOLUTE LYMPH COUNT 1.6 /CUMM (1.2-3.4); BASOPHIL % 0.7 % (0.0-2.0); EOSINOPHIL % 2.4 % (0-5); GRANULOCYTE % 70.8 % (42.2-75.2); MEAN CORPUSCULAR HGB 30.9 PG (27.0-31.0); MEAN CORPUSCULAR VOLUME 93.7 FL (81.0-99.0); MEAN PLATELET VOLUME 7.1 FL (7.4-10.4); PLATELET COUNT 410 /CUMM (130-400); RBC DISTRIBUTION WIDTH 15.6 % (11.5-14.5); RED BLOOD CELL CT 3.73 /CUMM (4.20-5.40); WHITE BLOOD CELL COUNT 9.9 /CUMM (4.8-10.8)
--- NOTE | 2017-07-27 10:32 | Event Note ---
Event Note Event Note: Discussed with Dr rivera if patient can be discharged? he advised if patient can have regular monitoring and follow up with PCP than can be discharged. We discussed with Dr Ronquillo and nurse at about follow at [facility]. They told that patient can be monitored over there.
--- NOTE | 2017-07-27 11:41 | PN- Nephrology ---
Assessment/Plan Nephrology Assessment: 1. Acute kidney injury. appears, to be a toxic event. Gabapentin? Occult decrease BP? Urinary indices c/w ATN. She is improving. I see no reason to pursue a kidney Biopsy. 2. History of alcohol abuse. In rehab 3. Remote history of melanoma requiring wide excision in 1980 4. Remote history of peptic ulcer disease requiring a partial gastrectomy, pyloroplasty and vagotomy. Suggestion: 1. Await SIEP. 2. needs spot urine protein to creatinine ratio. This is an estimate of 24 hour protein 3. repeat BMP on Tuesday and Tuesday 4. Unless there is a suggestion of a paraproteinemia, i see no reason for the patient not to return to Rehab. Subjective Subjective: Feels better. No difficulty voiding. Objective Vital Signs and I&Os Vital Signs Date Time Temp Pulse Resp B/P B/P Pulse O2 O2 Flow FiO2 Mean Ox Delivery Rate 07/27 06 98.2 84 18 158/80 95 Room Air 07/26 2030 97.4 82 18 156/70 97 Room Air 07/26 1800 160/80 07/26 1444 98.4 75 18 160/90 96 Room Air Intake & Output 07/27 1600 07/27 0400 07/26 1600 07/26 0400 07/25 1600 07/25 0400 Intake Total 1600 1360 2195 1300 Output Total 400 2300 2050 500 Balance 1200 -940 145 800 Intake, IV 763 615 8099 1000 Intake, Oral 1200 960 720 300 Number 0 Bowel Movements Output, Urine 400 2300 2050 500 Patient 136 lb 137 lb 137 lb Weight Weight Bed scale Measurement Method Physical Exam: General Appearance: well developed/nourished, no apparent distress, alert, awake , anxious, comfortable, thin Head: atraumatic, normal appearance Eyes: Bilateral: PERRL, EOMI, pale conjunctivae. Ears, Nose, Throat: normal pharynx, normal ENT inspection, hearing grossly normal Neck: normal inspection, supple, full range of motion Respiratory: normal breath sounds, chest non-tender, no respiratory distress, lungs clear Cardiovascular: regular rate/rhythm, norml femoral pulses equaL Gastrointestinal: normal bowel sounds, soft, non-tender, no organomegaly Back: normal inspection, no vertebral tenderness Extremities: normal inspection, normal capillary refill, normal range of motion, no edema Neurologic/Psych: no motor/sensory deficits, awake, alert, oriented x 3, normal mood/affect, Current Medications: Current Medications Sig/Isabell Start time Last Medication Dose Route Stop Time Status Admin Heparin Sodium 5,000 UNIT Q8 07/26 0600 AC 07/27 (Porcine) SC 0546 Nicotine 14 MG 1600 07/27 1600 AC TOP Nicotine 14 MG DAILY 07/26 0900 DC 07/26 TOP 1632 Patient Medication 1 ED ONE ONE 07/27 1115 DC Teaching ED 07/27 1116 Quetiapine Fumarate 100 MG QPM 07/26 2100 AC 07/26 PO 2210 Sodium Chloride 1,000 ML Q20H 07/26 1515 AC 07/26 IV 2348 Sodium Chloride 1,000 ML Q10H 07/26 0915 DC 07/26 IV 0936 Results Pertinent Lab Results: Laboratory Tests 07/27 07/27 07/26 0626 0600 1200 Chemistry Sodium (137 - 145 mmol/L) 137 Potassium (3.5 - 5.1 mmol/L) 4.4 Chloride (98 - 107 mmol/L) 105 Carbon Dioxide (22 - 30 mmol/L) 23 Anion Gap (5 - 16) 10 BUN (7 - 17 mg/dL) 46 H Creatinine (0.5 - 1.0 mg/dL) 4.0 H Estimated GFR (>60 ml/min) 11 L BUN/Creatinine Ratio (7 - 25 %) 11.5 Prot Electrophoresis Pending Total Protein (PEP) Pending Albumin % (PEP) Pending [id number] Pending [id number] Pending [id number] Pending [id number] Pending Gamma Globulins Pending Abnorm Protein Band 1 Pending Abnorm Protein Band 2 Pending Abnorm Protein Band 3 Pending Hematology CBC w Diff NO MAN DIFF REQ WBC (4.8 - 10.8 /CUMM) 9.9 RBC (4.20 - 5.40 /CUMM) 3.73 L Hgb (12.0 - 16.0 G/DL) 11.5 L Hct (37 - 47 %) 35.0 L MCV (81.0 - 99.0 FL) 93.7 MCH (27.0 - 31.0 PG) 30.9 MCHC (33.0 - 37.0 G/DL) 33.0 RDW (11.5 - 14.5 %) 15.6 H Plt Count (130 - 400 /CUMM) 410 H MPV (7.4 - 10.4 FL) 7.1 L Gran % (42.2 - 75.2 %) 70.8 Lymphocytes % (20.5 - 51.1 %) 16.4 L Monocytes % (1.7 - 9.3 %) 9.7 H Eosinophils % (0 - 5 %) 2.4 Basophils % (0.0 - 2.0 %) 0.7 Absolute Granulocytes (1.4 - 6.5 /CUMM) 7.0 H Absolute Lymphocytes (1.2 - 3.4 /CUMM) 1.6 Absolute Monocytes (0.10 - 0.60 /CUMM) 1.0 H Absolute Eosinophils (0.0 - 0.7 /CUMM) 0.2 Absolute Basophils (0.0 - 0.2 /CUMM) 0.1 Urines Ur Creatinine 24 Hour Cancelled Ur Total Protein 24 Hr Cancelled Protein/Creat Ratio 24h Cancelled U Protein Electrophores Cancelled Urine Albumin (%) Cancelled U [id number] Cancelled U [id number] Cancelled U Beta Globulin Cancelled U Gamma Globulin Cancelled U Abnormal Prot Band 1 Cancelled U Abnormal Prot Band 2 Cancelled U Abnormal Prot Band 3 Cancelled 07/26 07/26 07/26 1200 1128 0925 Chemistry Sodium (137 - 145 mmol/L) 138 Potassium (3.5 - 5.1 mmol/L) 4.6 Chloride (98 - 107 mmol/L) 106 Carbon Dioxide (22 - 30 mmol/L) 23 Anion Gap (5 - 16) 10 BUN (7 - 17 mg/dL) 50 H Creatinine (0.5 - 1.0 mg/dL) 4.7 H Estimated GFR (>60 ml/min) 9 L BUN/Creatinine Ratio (7 - 25 %) 10.6 Miscellaneous Ref Lab Test Result Pending Urines Ur Random Creatinine (mg/dL) 27.3 Ur Random Sodium (30 - 90 mmol/L) 58 Ur Random Potassium (mmol/L) 22.5 Fraction Sodium Excret (<1% %) 7.2 H 07/25 07/25 1944 1821 Chemistry Sodium (137 - 145 mmol/L) 137 Potassium (3.5 - 5.1 mmol/L) 4.7 Chloride (98 - 107 mmol/L) 101 Carbon Dioxide (22 - 30 mmol/L) 22 Anion Gap (5 - 16) 14 BUN (7 - 17 mg/dL) 55 H Creatinine (0.5 - 1.0 mg/dL) 5.4 *H Estimated GFR (>60 ml/min) 8 L BUN/Creatinine Ratio (7 - 25 %) 10.2 Glucose (65 - 99 mg/dL) 187 H Hemoglobin A1c (4.2 - 5.8 %) 5.2 Calcium (8.4 - 10.2 mg/dL) 8.3 L Phosphorus (2.5 - 4.5 mg/dL) 5.8 H Magnesium (1.6 - 2.3 mg/dL) 2.6 H Total Bilirubin (0.2 - 1.3 mg/dL) 0.2 Direct Bilirubin (< 0.4 mg/dL) 0.2 AST (14 - 36 U/L) 14 ALT (9 - 52 U/L) 12 Alkaline Phosphatase (<127 U/L) 54 Creatine Kinase (30 - 135 U/L) 26 L Troponin I (< 0.11 ng/ml) < 0.01 [id number]-[id number] Pept (<125 pg/mL) 585 H Total Protein (6.3 - 8.2 g/dL) 6.0 L Albumin (3.5 - 5.0 g/dL) 3.3 L Vitamin B12 (239 - 931 pg/mL) 750 Folate (2.76 - 20.0 ng/mL) 9.9 Hematology CBC w Diff NO MAN DIFF REQ WBC (4.8 - 10.8 /CUMM) 10.5 RBC (4.20 - 5.40 /CUMM) 3.87 L Hgb (12.0 - 16.0 G/DL) 11.8 L Hct (37 - 47 %) 36.2 L MCV (81.0 - 99.0 FL) 93.5 MCH (27.0 - 31.0 PG) 30.5 MCHC (33.0 - 37.0 G/DL) 32.6 L RDW (11.5 - 14.5 %) 15.3 H Plt Count (130 - 400 /CUMM) 443 H MPV (7.4 - 10.4 FL) 6.8 L Gran % (42.2 - 75.2 %) 74.0 Lymphocytes % (20.5 - 51.1 %) 13.5 L Monocytes % (1.7 - 9.3 %) 9.7 H Eosinophils % (0 - 5 %) 2.2 Basophils % (0.0 - 2.0 %) 0.6 Absolute Granulocytes (1.4 - 6.5 /CUMM) 7.8 H Absolute Lymphocytes (1.2 - 3.4 /CUMM) 1.4 Absolute Monocytes (0.10 - 0.60 /CUMM) 1.0 H Absolute Eosinophils (0.0 - 0.7 /CUMM) 0.2 Absolute Basophils (0.0 - 0.2 /CUMM) 0.1 Toxicology Serum Alcohol (<10 MG/DL) < 10.0 Urines Urine Color (YEL,AMB,STR) YEL Urine Clarity (CLEAR) CLEAR Urine pH (5.0 - 8.0) 6.5 Ur Specific Dewitt (1.001 - 1.035) 1.010 Urine Protein (NEG,<30 MG/DL) TRACE H Urine Ketones (NEG) NEG Urine Nitrite (NEG) NEG Urine Bilirubin (NEG) NEG Urine Urobilinogen (0.1 - 1.0 EU/dl) 0.2 Ur Leukocyte Esterase (NEG) SMALL H Ur Microscopic SEDIMENT EXAMINED Urine RBC (0 - 5 /HPF) 5-10 H Urine WBC (0 - 2 /HPF) 10-15 H Ur Epithelial Cells (NONE,FEW) MANY H Urine Bacteria (NEG/NONE) MANY H Urine Hemoglobin (NEG) SMALL H Urine Glucose (N MG/DL) NEG 07/25 1821 Toxicology Urine Opiates Screen (>2000 NG/ML) < 100 Methadone Screen (>300 NG/ML) < 40 Barbiturate Screen (>200 NG/ML) < 60 Ur Phencyclidine Scrn (>25 NG/ML) < 6.00 Amphetamines Screen (>1000 NG/ML) < 100 U Benzodiazepines Scrn (>200 NG/ML) 87 Urine Cocaine Screen (>300 NG/ML) < 50 Urine Cannabis Screen (>50 NG/ML) < 5.00 Urines Ur Random Creatinine (mg/dL) 38.8 Ur Random Sodium (30 - 90 mmol/L) 37 Ur Random Potassium (mmol/L) 38.7 Fraction Sodium Excret (<1% %) 3.8 H
== END 2017-07-27 14:49 | DRG 684 ==
LOC: ERH 17:34 → 2NB 21:39 → ERHI 21:39 → ENRESERV 23:01 → 2NB 07-26 00:59
PROVIDERS: Physician Assistant; Student in an Organized Health Care Education/Training Program
DX: N17.0 Acute kidney failure with tubular necrosis (principal); E83.39 Other disorders of phosphorus metabolism; F10.20 Alcohol dependence, uncomplicated; Y90.0 Blood alcohol level of less than 20 mg/100 ml; E83.41 Hypermagnesemia; D64.9 Anemia, unspecified; R73.9 Hyperglycemia, unspecified; Z88.5 Allergy status to narcotic agent; Z98.1 Arthrodesis status; Z90.3 Acquired absence of stomach [part of]; Z90.49 Acquired absence of other specified parts of digestive tract; F43.10 Post-traumatic stress disorder, unspecified
CPT/HCPCS: 2NBSP; 84133; 84300; ERO; 36592; 74176; 76775; 80307; 81001; 82436; 82570; 84166; 93005; 93010; G0480; J1644